=== PATIENT | female | born 1950 | race Caucasian/White ===

== ENCOUNTER 2024-07-27 09:17 | Emergency (ER) | payer MEDICARE, SELFPAY ==
[2024-07-27 09:45] VITALS: BP 168/80; PULSE 70; RESP 18; TEMP 36.6; O2SAT 99
--- NOTE | 2024-07-27 10:45 | DI.CT_ITS ---
Exam(s) CT ABDOMEN PELVIS W EXAM: CT ABDOMEN PELVIS W CLINICAL HISTORY: BLQ pain, hx diverticulitis. TECHNIQUE: Imaging Protocol: Axial computed tomography images with coronal and sagittal reformatted images were created and reviewed CONTRAST MATERIAL: Intravenous: Omnipaque-350 100cc Oral: None COMPARISON: No exams were available for comparison FINDINGS: VISUALIZED LUNG BASES: There is a small 4 millimeter noncalcified fissure related nodule in the infer ior lingular segment left lung. No pleural effusions. ABDOMEN: There is no ascites. LIVER: There is a small benign-appearing hypodensity in the anterior subcapsular aspect of the right upper lobe measuring 6 mm, probably a cyst or hemangioma. No other significant focal hepatic lesions . No dilated intrahepatic ducts. GALLBLADDER/BILIARY: Gallbladder surgically absent. CBD is not dilated. PANCREAS: No evidence of pancreatic mass nor dilatation of the pancreatic duct. SPLEEN: Spleen is not enlarged. No obvious intrasplenic lesions. Splenic and portal veins are paten t. ADRENALS: There are no significant adrenal masses. KIDNEYS:No cysts evident. No solid renal masses. No calculi nor hydronephrosis.. ABDOMINAL AORTA: Abdominal aorta is calcified but not enlarged. The common iliac arteries are not ca lcified nor enlarged. LYMPH NODES:There is no retroperitoneal nor paraaortic adenopathy. ABDOMINAL WALL: There is a fat only containing small anterior abdominal wall umbilical hernia. GI: No evidence of bowel obstruction. PELVIS: GI: No evidence of appendicitis.There is extensive sigmoid diverticulosis and there is also evidence of acute diverticulitis in the sigmoid just above the urinary bladder. There is significant perisigm oid fat streaking at this level. No evidence of abscess nor free fluid LYMPH NODES: There is no intrapelvic nor inguinal adenopathy. REPRODUCTIVE: Age-appropriate URINARY BLADDER: No intraluminal gas to suggest fistulous communication at this time from the adjacen t infectious process in the sigmoid. OSSEOUS: No fractures and no significant osseous lesions. Chronic disc space narrowing at L5-S1 level noted. IMPRESSION: 1. Findings are consistent with acute diverticulitis of the sigmoid colon, this superimposed upon ext ensive diverticulosis of the sigmoid. No evidence of abscess at this time. 2. No gas within the portal venous system nor evidence of intrahepatic abscess. 3. There is presently no gas within the adjacent urinary bladder to suggest fistulous communication. Report called by myself to ER provider 07/27/2024 at 12:25 p.m. RADIATION DOSE DELIVERED: 434.7mGy.cm Total DLP DATA REPOSITORY: All CT scans at this facility are submitted to the National Radiology Data Registry (NRDR) Dose Index Registry (DIR) with the [employer] ([employer]). RADIATION OPTIMIZATION: All CT scans at this facility use at least one of these dose optimization te chniques: automated exposure control; mA and/or kV adjustment per patient size (includes targeted exa ms where dose is matched to clinical indication); or iterative reconstruction.
--- NOTE | 2024-07-27 10:48 | ED.GENADUL_ITS ---
Discharge Plan Disposition Patient Disposition: Home Condition: Good Discharge Details Clinical Impression: Diverticulitis, Abdominal pain Primary Care Provider: Elo,Local ED Provider: Rosangela Zambrano Home Meds and New Rx's Prescriptions: New amoxicillin-pot clavulanate 875-125 mg tablet 1 tab PO BID 7 Days Qty: 14 0RF No Action simvastatin 80 mg tablet 80 mg PO DAILY losartan 100 mg tablet 100 mg PO DAILY levothyroxine 100 mcg tablet 100 mcg PO DAILY meclizine 12.5 mg tablet 25 mg PO DAILY famotidine 20 mg tablet 20 mg PO DAILY PRN cetirizine [24Hour Allergy] 10 mg tablet 10 mg PO DAILY PRN bisacodyl 5 mg tablet 5 mg PO DAILY fluticasone propionate 50 mcg/actuation spray,suspension 1 spray INTRANASAL DAILY PRN Discharge Instructions Instructions: Diverticulitis (DC), Abdominal Pain, Adult ED Additional Instructions: Your imaging shows recurrent diverticulitis. This does not show any complications such as perforation or abscess. Will treat you with antibiotics as you were treated last time. This has been sent to [facility] in [facility]. You received your first dose while here. Next dose is due this evening. Please take as directed on packaging. Even if symptoms improve, please take the entire course. Please encourage hydration. He may continue with Tylenol as needed for discomfort. If you develop fever/chills, inability stay hydrated, increased pain or other new/worsening symptom, please seek care urgently once again. Otherwise, please follow-up with your primary care provider as soon as possible once home. May need to discuss need for colonoscopy if you are not up-to-date on this as well. Discharge Data Discharge Date/Time-TO BE ENTERED AT DEPARTURE: 07/27/24 12:57 HPI General Date/Time Provider Initiated Documentation: 07/27/24 09:24 . Limitations to Documentation: no limitations . Information obtained by: patient and RN notes reviewed . History of Present Illness 74 year old F presents to the emergency department with the chief complaint of Lower abdominal pain, described as moderate and similar to prior episodes, Quality is described as stabbing and aching, and is localized to the abdomen. Patient reports no radiation. Patient started experiencing this day(s) and it has been intermittent. other things that improve symptom(s), (Deep breathing or holding her breath) No exacerbating factors reported . Patient notes loss of appetite and other (Diarrhea); denies chest pain, cough, fever/chills, nausea/vomiting and rash. Patient did receive the following treatments prior to arrival, none Related Data Home Medications ?Medication ?Instructions ?Recorded ?Confirmed amoxicillin 875 mg-potassium 1 tab PO BID 7 days #14 tabs 07/27/24 clavulanate 125 mg tablet bisacodyl 5 mg tablet 5 mg PO DAILY 07/27/24 07/27/24 cetirizine 10 mg tablet (24Hour 10 mg PO DAILY PRN 07/27/24 07/27/24 Allergy) famotidine 20 mg tablet 20 mg PO DAILY PRN 07/27/24 07/27/24 fluticasone propionate 50 1 spray intranasal DAILY PRN 07/27/24 07/27/24 mcg/actuation nasal spray,suspension levothyroxine 100 mcg tablet 100 mcg PO DAILY 07/27/24 07/27/24 losartan 100 mg tablet 100 mg PO DAILY 07/27/24 07/27/24 meclizine 12.5 mg tablet 25 mg PO DAILY 07/27/24 07/27/24 simvastatin 80 mg tablet 80 mg PO DAILY 07/27/24 07/27/24 Previous Rx's ?Medication ?Instructions ?Recorded amoxicillin 875 mg-potassium 1 tab PO BID 7 days #14 tabs 07/27/24 clavulanate 125 mg tablet Allergies Allergy/AdvReac Type Severity Reaction Status Date / Time propoxyphene (From Darvon) AdvReac Mild Other (See Verified 07/27/24 11:39 Comment) General Stated Complaint: Abd Prob TONY: 3 Review of Systems Constitutional Constitutional: Reports as per HPI, Denies chills, Denies fatigue, Denies fever(s) and Denies headache(s) ENT Ears, Nose, Mouth, and Throat: Denies headache(s) Cardiovascular Cardiovascular: Reports as per HPI, Denies chest pain and Denies dyspnea Respiratory Respiratory: Reports as per HPI, Denies cough and Denies dyspnea Gastrointestinal Gastrointestinal: Reports as per HPI Musculoskeletal Musculoskeletal: Reports as per HPI and Denies back pain Integumentary/Breasts Skin/Breast: Reports as per HPI and Denies rash Neurologic Neurologic: Reports as per HPI and Denies headache(s) Endocrine Endocrine: Denies fatigue Exam Const General: cooperative, healthy appearing, comfortable, no acute distress and well developed Nutritional Appearance: average body habitus and well nourished Orientation: alert and awake [facility] Head: normal to inspection Mouth: moist mucous membranes Resp Effort & Inspection: normal respiratory effort, able to speak in complete sentences and no respiratory distress Auscultation: clear to auscultation bilaterally, no rales, no rhonchi and no wheezes Cardio Rate: regular rate Rhythm: regular rhythm Heart Sounds: S1 normal and S2 normal GI Inspection: normal to inspection Palpation: soft, no hepatosplenomegaly, not firm, no guarding, no masses, no pulsatile masses, tender in the LLQ and in the RLQ; not at McBurney's point, Rosales's sign negative, obturator sign negative and with no rebound tenderness and No ascites Percussion: normal to percussion Auscultation: normal bowel sounds Back/Spine/Pelvis Back: no CVA tenderness Skin General skin exam: no rashes or lesions noted Trauma: no lacerations or abrasions Neuro General: patient alert and patient awake Cognition: normal cognition Speech: speech normal Gait: normal gait Course Vital Signs Vital signs: Vital Signs Temperature 36.6 C 07/27/24 09:45 Pulse 70 07/27/24 09:45 Respiratory Rate 18 07/27/24 09:45 Blood Pressure 168/80 H 07/27/24 09:45 Pulse Oximetry 99 07/27/24 09:45 Temperature 36.6 C 07/27/24 09:45 Temperature Source Oral 07/27/24 09:45 Pulse 70 07/27/24 09:45 Respiratory Rate 18 07/27/24 09:45 Respiratory Effort Normal, Non-Labored 07/27/24 10:18 Blood Pressure 168/80 H 07/27/24 09:45 Blood Pressure Position Supine 07/27/24 09:45 Pulse Oximetry 99 07/27/24 09:45 Oxygen Delivery Method Room Air 07/27/24 09:45 Oxygen Flow Rate 0 07/27/24 09:45 Pain Level 8 07/27/24 10:18 Medical Decision Making Patient 74-year-old female presenting with chief complaint of bilateral lower abdominal pain that began 3 days ago. She reports that she has had diverticulitis in the past and it feels very similar. Patient typically resides in [place], is visiting with family. She denies any change in her appetite or change with food. She states she has had some loose bowel movements, 3 today so far, all of which have been nonbloody. No change in urinary habits. She denies any flank pain. Past surgical history significant for tubal ligation. She reports chronic bilateral lower extremity edema. Has not taken anything for her discomfort, typically finds it slowing down and breathing exercises, cyst. On exam, patient appears nontoxic. Resting and intermittently appears uncomfortable but does some deep breathing and seems to be able to have this sub sided on her own. While her abdomen is tender along the entirety of the lower portion, she has no peritoneal findings. No bruising or ecchymosis. No distention or palpable mass. No CVA tenderness. Patient does have 1+ lower extremity edema but she reports is chronic unchanged, has 2+ distal pulses. No pulsatile mass. Given patient's history and sensation, most likely to be diverticulitis although it is atypical for this to be spread across the entire lower abdomen. Considered alternative diagnoses. As she is having some diarrhea, this may be like a gastroenteritis. However, do feel that further evaluation is appropriate. She denies any nausea. Will give acetaminophen and ibuprofen for discomfort. Her daughter drove her here. Patient's pain is improving. She is currently sleeping. Review of her lab significant for leukocytosis with a white count of 12.6. Lites are otherwise unremarkable. Imaging concerning for diverticulitis without complication in the sigmoid colon. I discussed these findings with the patient. Historically, when she has had this in the past, she has been treated with antibiotics and did quite well. She is traveling and has only intermittent accessibility to the medical care at this time, I do feel that appropriate treatment would be with antibiotics rather than watchful wait approach. She is returning to her home state next week. I encour aged close follow-up and strict return precautions. We did discuss potential complications and what to be on the look out for. Encourage hydration. We discussed pain management. All of her questions and concerns were addressed and patient is in agreement this plan. This documentation was generated using [facility] system, please disregard any oddities of phrase or misspellings. Quality:SDOH Health Related Social Needs: No Data to Display PFSH All Active Problems (Updated 07/27/24 @ 12:35 by ROSIO Brenner) Abdominal pain (Acute) Diverticulitis (Chronic) Social History Smoking/Tobacco Use Status: Never Smoking risk assessment performed?: Yes Alcohol Intake: current Alcohol Intake frequency: holidays/special occasions only Alcohol type: beer Substance use type: does not use Housing: assisted living facility Do you feel safe at home: Yes Do you feel safe in your relationship?: Yes Additional Social history: lives in [place] visiting [place] for 6 months
[2024-07-27 11:05] LABS: Abs Immature Grans 0.03 10^3/uL (0.0-0.06); Absolute Basophil Count 0.06 10^3/uL (0.0-0.2); Absolute Eosinophil Count 0.27 10^3/uL (0.0-0.7); Absolute Lymphocyte Count 1.82 10^3/uL (1.2-3.4); Absolute Monocyte Count 1.02 10^3/uL (0.1-0.8); Basophils % 0.5 %; Eosinophils % 2.1 %; HCT 37.1 % (36.0-46.0); HGB 12.3 g/dL (11.2-15.7); Immature Grans % 0.2 %; Lymphocytes % 14.4 %; MCH 30.5 pg (27.0-33.0); MCHC 33.2 % (32.0-36.0); MCV 92 fL (80-95); MPV 9.6 fL (8.0-11.0); Monocytes % 8.1 %; Neutrophils % 74.7 %; Platelet Count 253 10^3/uL (130-400); RBC 4.03 10^6/uL (3.93-5.22); RDW 13.1 % (11.7-14.6); WBC 12.62 10^3/uL (4.4-10.8)
[2024-07-27 11:06] LABS: Absolute Neutrophil Count 9.43 10^3/uL (1.2-6.7)
[2024-07-27] MEDS: ACETAMINOPHEN 1,000 MG/100 ML BTL 400 MG IVPB (11:16)
[2024-07-27] MEDS: HYDROmorphone 2 MG/ML SYR 0.5 MG IVP (11:17)
[2024-07-27 11:24] LABS: ALT 18 U/L (14-59); AST 18 U/L (15-37); Albumin 3.7 g/dL (3.4-5.0); Alkaline Phosphatase 102 U/L (46-116); Anion Gap 8.3 mmol/L (3-11); BUN 9 mg/dL (7-18); CO2 27.7 mmol/L (21.0-32.0); CREATININE 0.9 mg/dL (0.55-1.02); Calcium 9.2 mg/dL (8.5-10.1); Chloride 106 mmol/L (98-107); Glucose 125 mg/dL (74-106); Potassium 3.6 mmol/L (3.5-5.1); Sodium 142 mmol/L (136-145); Total Protein 8.1 g/dL (6.4-8.2)
[2024-07-27] MEDS: Omnipaque 350 MG/ML 500 ML BTL-Imaging package 15 ML IJ (11:46)
[2024-07-27] MEDS: Normal Saline - Diluent 50 ML VIAL IJ (11:46)
[2024-07-27] MEDS: Omnipaque 350 MG/ML 50 ML BTL IJ (11:50)
[2024-07-27] MEDS: Amoxicillin 875/Clav. 125 TAB PO (12:49)
--- NOTE | 2024-07-28 11:02 | NUR.NOTE ---
Patient called stating that she did not have her teal jacket and that she thought she left it here. Called Security and they do not have it, we do not have it in our lost and found either. Called patient back and left a message on her cell phone that we do not have the jacket. .Nursing Note:
== END 2024-07-27 12:57 | disposition home or self-care (01) ==
LOC: ER 13:11
PROVIDERS: Emergency Provider Physician Assistant
DX: R19.7 Diarrhea, unspecified; K57.30 Diverticulosis of large intestine without perforation or abscess without bleeding; R10.32 Left lower quadrant pain; R10.31 Right lower quadrant pain
CPT/HCPCS: 80053; 96374; 96375; 99285; 74177; 83735; 85025; 99283; J0131; J1171; Q9967